=== PATIENT | male | born 1955 | race Two or more races ===

== ENCOUNTER 2024-08-13 08:57 | Emergency (ER) | payer OTHER ==
[~2024-08-13] VITALS: Ht 182.9 cm; Wt 69.7 kg
--- NOTE | 2024-08-13 09:11 | ED.PDOC ---
GI ASSESSMENT HPI Comments 69 year old male presents to the ED with chief complaint of abdominal pain. Patient reports that he has been experiencing intermittent epigastric abdominal pain with associated nausea for the past 10 days. Patient relays that he has history of GERD, enlarged prostate, and pancreatitis, currently takes Omeprazole and Flomax. Patient denies any V/D, fever, chills, dizziness, headache, or dysuria. Time Seen by MD: 09:01 Reviewed Notes: Nurses Notes, Medications, Allergies Allergies: Coded Allergies: NO KNOWN ALLERGIES (Unverified , 08/13/24) Information Source: Patient Mode of Arrival: Ambulatory Timing: Days Duration: Since onset Prehospital treatment: None Quality: Sharp Vomitus: None Stool: Normal Severity: Moderate Recent: None Recent Hx of: None Pain Location: Epigastric Modifying Factors: Nothing Associated sign and symptoms: Abdominal Pain Past Medical History PAST MEDICAL HISTORY: GERD Past Medical History (Other): Pancreatitis, Enlarged prostate Surgical History: Denies all surgeries Family History Family History: Reviewed,noncontributory to illness Social History Smoker: Non-Smoker Alcohol: Denies ETOH Use Drugs: Denies Drug Use Lives In: Home Constitutional: denies: chills, diaphoresis, fatigue, fever, malaise, sweats, weakness, others EENTM: denies: blurred vision, double vision, ear bleeding, ear discharge, ear drainage, ear pain, ear ringing, eye pain, eye redness, hearing loss, mouth pain, mouth swelling, nasal discharge, nose bleeding, nose congestion, nose p ain, photophobia, tearing, throat pain, throat swelling, voice changes, others Respiratory: denies: cough, hemoptysis, orthopnea, SOB at rest, shortness of breath, SOB with excertion, stridor, wheezing, others Cardiovascular: denies: chest pain, dizzy spells, diaphoresis, Dyspnea on exertion, edema, irregular heart beat, left arm pain, lightheadedness, palpitations, PND, syncope, others Gastrointestinal: reports: abdominal pain, nausea; denies: abdomen distended, blood streaked bowels, constipated, diarrhea, dysphagia, difficulty swallowing, hematemesis, melena, poor appetite, poor fluid intake, rectal bleeding, rectal pain, vomiting, others Genitourinary: denies: burning, dysuria, flank pain, frequency, hematuria, incontinence, penile discharge, penile sore, pain, testicle pain, testicle swelling, urgency, others Neurological: denies: dizziness, fainting, headache, left sided numbness, left sided weakness, numbness, paresthesia, pre-existing deficit, right sided numbness, right sided weakness, seizure, speech problems, tingling, tremors, weakness, others Musculoskeletal: denies: back pain, gout, joint pain, joint swelling, muscle pain, muscle stiffness, neck pain, others Integumetry: denies: bruises, change in color, change in hair/nails, dryness, laceration, lesions, lumps, rash, wounds, others Allergic/Immunocompromised: denies: Difficulty Healing, Frequent Infections, Hives, Itching, others Hematologic/Lymphatic: denies: anemia, blood clots, easy bleeding, easy bruising, swollen glands, others Endocrine: denies: excessive hunger, excessive sweating, excessive thirst, excessive urination, flushing, intolerance to cold, intolerance to heat, unexplained weight gain, unexplained weight loss, others Psychiatric: denies: anxiety, bipolar disorder, depression, hopeless, panic disorder, schizophrenia, sleepless, suicidal, others All Other Systems: Reviewed and Negative Physical Exam General Appearance: Moderate Distress, Normal HEENT: Normal ENT Inspection, PERRL/EOMI Neck: Full Range of Motion, Non-Tender, Normal, Normal Inspection Respiratory: Chest Non-Tender, Lungs Clear, No Accessory Muscle Use, No Respiratory Distress, Normal Breath Sounds Cardiovascular: No Edema, No JVD, No Murmur, No Gallop, Normal Peripheral Pulses, Regular Rate/Rhythm Breast Exam: Deferred Gastrointestinal: No Organomegaly, Non Tender, No Pulsatile Mass, Normal Bowel Sounds, Soft Genitalia: Deferred Pelvic: Deferred Rectal: Deferred Extremities: No calf tenderness, Normal capillary refill, Normal inspection, Normal range of motion, Non-tender, No pedal edema Musculoskeletal : Apperance: Normal Neurologic: Alert, log loader helper II-XII nml as Tested, No Motor Deficits, Normal Affect, Normal Mood, No Sensory Deficits Cerebellar Function: Normal Reflexes: Normal Skin: Dry, Normal Color, Warm Peripheral Pulses: 3+ Radial (R), 3+ Radial (L) Lymphatic: No Adenopathy Was a procedure done? Was a procedure done?: No GI differential Dx Differential Diagnosis: Constipation, Diverticular disease, Esophagitis, Gastritis/PUD, Gastroenteritis X-Ray, Labs, Meds, VS Vital Signs Date Time Temp Pulse Resp B/P (MAP) Pulse Ox O2 Delivery O2 Flow Rate FiO2 08/13/24 12:38 97.7 71 18 126/84 (98) 99 97.7 08/13/24 09:45 78 18 99 Room Air 08/13/24 09:36 97.8 78 18 134/95 (108) 99 97.8 08/13/24 09:13 61 08/13/24 09:01 97.9 87 18 158/94 (115) 99 Lab Test 08/13/24 09:19 Range/Units White Blood Count 4.5 4.4-10.8 10^3/uL Red Blood Count 5.23 4.5-5.90 10^6/uL Hemoglobin 15.3 13.5-17.5 g/dL Hematocrit 46.1 41.0-53.0 % Mean Corpuscular Volume 88.0 80.0-100.0 fL Mean Corpuscular Hemoglobin 29.3 28.0-32.0 pg Mean Corpuscular Hemoglobin Concent 33.3 32.0-36.0 g/dL Red Cell Distribution Width 13.2 11.8-14.3 % Platelet Count 282 140-450 10^3/uL Mean Platelet Volume 7.7 6.9-10.8 fL Neutrophils (%) (Auto) 48.8 37.0-80.0 % Lymphocytes (%) (Auto) 38.5 10.0-50.0 % Monocytes (%) (Auto) 11.1 0.0-12.0 % Eosinophils (%) (Auto) 1.4 0.0-7.0 % Basophils (%) (Auto) 0.2 0.0-2.0 % Neutrophils # (Auto) 2.2 1.6-8.6 10 ^3/uL Lymphocytes # (Auto) 1.7 0.4-5.4 10 ^3/uL Monocytes # (Auto) 0.5 0-1.3 10 ^3/uL Eosinophils # (Auto) 0.1 0-0.8 10 ^3/uL Basophils # (Auto) 0 0-0.2 10 ^3/uL Nucleated Red Blood Cells 0.1 % Sodium Level 140 136-145 mmol/L Potassium Level 3.8 3.5-5.1 mmol/L Chloride Level 105 98-107 mmol/L Carbon Dioxide Level 29 20-31 mmol/L Anion Gap 6 5-15 Blood Urea Nitrogen 11 9-23 mg/dL Creatinine 1.01 0.700-1.30 mg/dL Glomerular Filtration Rate Calc 81 >90 mL/min BUN/Creatinine Ratio 10.9 10.0-20.0 Serum Glucose 94 74-106 mg/dL Calcium Level 10.2 8.7-10.4 mg/dL Lipase 54 H 12-53 U/L Current Medications Medications (Trade) Dose Ordered Sig/Case Route Start Time Stop Time Status Last Admin Belladonna Alkaloids/ Phenobarbital ( Elixir) 10 ml ONCE ONCE PO 08/13/24 09:15 08/13/24 09:16 DC 08/13/24 09:35 Al Hydrox/Mg Hydrox/Simethicone (Maalox Plus) 30 ml ONCE ONCE PO 08/13/24 09:15 08/13/24 09:16 DC 08/13/24 09:34 Lidocaine HCl (Xylocaine 2% Viscous) 15 ml ONCE ONCE PO 08/13/24 09:15 08/13/24 09:16 DC 08/13/24 09:34 Patient alert. Complaining of epigastric discomfort. Vitals stable. Answering all questions. Was given GI cocktail. Reviewed his previous visit. Explained to the patient. EKG reviewed does not show any acute changes. [id number]. CT Abd/Pel: Findings: Evaluation of vasculature and solid organs is limited due to lack of intravenous contrast use. Lung Bases: Lung bases are clear. Visualized portions of the heart and pericardium are unremarkable. Liver: The liver is normal in size. There are scattered low attenuating lesions throughout the liver. The largest is in the right hepatic dome measuring 2.6 cm. Many of the low attenuating lesions likely reflect cysts. There is an indeterminate low attenuating lesion in the anterior right hepatic lobe which measures 2.2 cm not definitely representing a cyst. Gallbladder and Biliary Tree: The gallbladder is unremarkable. No intrahepatic or extrahepatic biliary ductal dilatation. Spleen: Unremarkable Pancreas: The pancreas is grossly unremarkable. Adrenal Glands: Unremarkable Kidneys: No evidence of nephrolithiasis or hydronephrosis. Bilateral parapelvic cysts. There is a right cortical renal cyst measuring 1.4 cm. GI tract: The stomach is grossly normal in appearance. No evidence of small bowel wall thickening or abnormal dilatation to suggest bowel obstruction. Sigmoid diverticulosis without acute diverticulitis. Normal caliber appendix. Peritoneum/mesentery/retroperitoneum. No evidence of free intraperitoneal air. No ascites. No evidence of suspicious lymphadenopathy. Abdominal Wall: Small fat containing inguinal hernias. Vasculature: The visualized abdominal aorta is normal in size and caliber. Evaluation of abdominal and pelvic vessels is limited due to lack of intravenous contrast. Urinary Bladder: Grossly unremarkable for degree of distention. Pelvic Organs: The prostate is enlarged measuring 5.0 cm in maximum transverse dimension. Musculoskeletal: No aggressive focal bony lesions, acute fractures or dislocation. Grade 1 anterolisthesis at L5-S1. IMPRESSION: 1. No acute abdominal or pelvic findings. 2. Sigmoid diverticulosis without acute diverticulitis. 3. Several low attenuating lesions scattered throughout the liver which are not further characterized on this unenhanced CT. Some of the lesions may reflect cysts. There is a least 1 indeterminate low attenuating lesion in the anterior right hepatic lobe. Right upper quadrant ultrasound may be obtained for further characterization. MRI is suggested if ultrasound is noncontributory. 4. Enlarged prostate. 5. Bilateral parapelvic and right cortical renal cyst. Images Reviewed?: Images reviewed and evaluated by me Time of 1ST Reevaluation: 10:01 Reevaluation 1ST: Improved Patient Education/Counseling: Diagnosis, Treatment Family Education/Counseling: No Family Present Additional Information I reviewed the following notes from patient's past medical encounters: None The following tests were ordered, and results were reviewed by me: CBC, Lipase, BMP, CT Abd/Pel Additional Information was gathered from interviewing the following independent historians: None I reviewed and agreed with the following test results read by other providers: CT Abd/Pel I discussed treatment and results with medical personnel. Departure 1 Departure Time of Disposition: 09:15 Impression: Primary Impression: Acute pancreatitis Qualified Codes: K85.90 - Acute pancreatitis without necrosis or infection, unspecified Additional Impression: Gastritis Qualified Codes: K29.00 - Acute gastritis without bleeding Disposition: 02 SHORT TERM HOSPITAL Admit to: Med Surg Condition: Guarded Critical Care Note Critical Care Time?: No Stability Stability form required: No Heart Score Heart Score: Heart Score Response (Comments) Value History Slightly Suspicious 0 EKG Normal 0 Age >65 2 Risk Factors 1 or 2 risk factors 1 Troponin N/A 0 Total 3 I personally scribed for MARCELO NEVAREZ MD ([email or web address]) on 08/13/24 at 09:11. Electronically submitted by Eyad Piña ([email or web address]). I personally scribed for MARCELO NEVAREZ MD ([email or web address]) on 08/13/24 at 09:12. Electronically submitted by Eyad Piña ([email or web address]). I personally scribed for MARCELO NEVAREZ MD ([email or web address]) on 08/13/24 at 11:33. Electronically submitted by Eyad Piña ([email or web address]). I personally scribed for MARCELO NEVAREZ MD ([email or web address]) on 08/13/24 at 12:57. Electronically submitted by Eyad Piña ([email or web address]). MARCELO NEVAREZ MD Aug 13, 2024 09:11
[2024-08-13] MEDS: LIDOCAINE VISCOUS 2% 15ML UD PO ONE (09:34)
[2024-08-13] MEDS: MAALOX PLUS or MAALOX 30 ML PO ONE (09:34)
[2024-08-13 09:35] LABS: Chloride 105 mmol/L (98-107); Potassium 3.8 mmol/L (3.5-5.1); Sodium 140 mmol/L (136-145)
[2024-08-13] MEDS: DONNATAL 5ml ORAL Elix (BELLADONNA ALK-PHENOBARB) PO ONE (09:35)
[2024-08-13 09:36] LABS: Anion Gap 6 (5-15); Calcium 10.2 mg/dL (8.7-10.4); Carbon Dioxide 29 mmol/L (20-31)
[2024-08-13 09:37] LABS: Basophils # (auto) 0 10 ^3/uL (0-0.2); Basophils % (auto) 0.2 % (0.0-2.0); Eosinophils # (auto) 0.1 10 ^3/uL (0-0.8); Eosinophils % (auto) 1.4 % (0.0-7.0); Hematocrit 46.1 % (41.0-53.0); Hemoglobin 15.3 g/dL (13.5-17.5); Lymphocytes # (auto) 1.7 10 ^3/uL (0.4-5.4); Lymphocytes % (auto) 38.5 % (10.0-50.0); Mean Corpuscular Hemoglobin 29.3 pg (28.0-32.0); Mean Corpuscular Hgb Conc. 33.3 g/dL (32.0-36.0); Monocytes # (auto) 0.5 10 ^3/uL (0-1.3); Monocytes % (auto) 11.1 % (0.0-12.0); Neutrophils # (auto) 2.2 10 ^3/uL (1.6-8.6); Neutrophils % (auto) 48.8 % (37.0-80.0); Nucleated Red Blood Cells % 0.1 %; Platelet Count (auto) 282 10^3/uL (140-450); Red Blood Cells 5.23 10^6/uL (4.5-5.90); Red Cell Distribution Width 13.2 % (11.8-14.3); White Blood Cell 4.5 10^3/uL (4.4-10.8)
[2024-08-13 09:41] LABS: BUN/Creatinine Ratio 10.9 (10.0-20.0); Blood Urea Nitrogen 11 mg/dL (9-23); Glucose 94 mg/dL (74-106)
[2024-08-13 10:05] LABS: Lipase 54 U/L (12-53)
--- NOTE | 2024-08-13 11:07 | ECG ---
[facility] Test Date: 2024-08-13 Test Time: 09:13:15 Pat Name: SHILO YU Department: ER Room: Gender: M Detail Supervisor: FABIAN : [id number] Requested By: MARCELO NEVAREZ Order Number: [id number] Reading MD: Fantasma King Measurements Intervals Hines Rate: 61 P: 61 RI: 149 QRS: 50 QRSD: 110 T: 64 QT: 432 QTc: 435 Interpretive Statements Sinus rhythm Electronically Signed On 08-15-2024 17:05:42 PST by Fantasma King Please click the below link to view image of tracing.
--- NOTE | 2024-08-13 11:30 | DVH ---
Exam: CT CT AB PEL WO CON-NO ORAL OR IV History: abd pain Comparison Study: None available at time of dictation. Technique: Multidetector spiral CT of the abdomen and pelvis was performed from lung bases to pubic s ymphysis. Imaging was performed without intravenous contrast. Coronal and sagittal multiplanar refor mats were obtained from the axial data set by the technologist. Radiation Dose : 1. Abdomen/Pelvis: CTDIvol 5.3 mGy, DLP 300.9 mGy*cm. Findings: Evaluation of vasculature and solid organs is limited due to lack of intravenous contrast use. Lung Bases: Lung bases are clear. Visualized portions of the heart and pericardium are unremarkable. Liver: The liver is normal in size. There are scattered low attenuating lesions throughout the liver . The largest is in the right hepatic dome measuring 2.6 cm. Many of the low attenuating lesions lik lorraine reflect cysts. There is an indeterminate low attenuating lesion in the anterior right hepatic lo be which measures 2.2 cm not definitely representing a cyst. Gallbladder and Biliary Tree: The gallbladder is unremarkable. No intrahepatic or extrahepatic bilia ry ductal dilatation. Spleen: Unremarkable Pancreas: The pancreas is grossly unremarkable. Adrenal Glands: Unremarkable Kidneys: No evidence of nephrolithiasis or hydronephrosis. Bilateral parapelvic cysts. There is a ri ght cortical renal cyst measuring 1.4 cm. GI tract: The stomach is grossly normal in appearance. No evidence of small bowel wall thickening or abnormal dilatation to suggest bowel obstruction. Sigmoid diverticulosis without acute diverticuliti s. Normal caliber appendix. Peritoneum/mesentery/retroperitoneum. No evidence of free intraperitoneal air. No ascites. No evidenc e of suspicious lymphadenopathy. Abdominal Wall: Small fat containing inguinal hernias. Vasculature: The visualized abdominal aorta is normal in size and caliber. Evaluation of abdominal a nd pelvic vessels is limited due to lack of intravenous contrast. Urinary Bladder: Grossly unremarkable for degree of distention. Pelvic Organs: The prostate is enlarged measuring 5.0 cm in maximum transverse dimension. Musculoskeletal: No aggressive focal bony lesions, acute fractures or dislocation. Grade 1 anterolist hesis at L5-S1. IMPRESSION: 1. No acute abdominal or pelvic findings. 2. Sigmoid diverticulosis without acute diverticulitis. 3. Several low attenuating lesions scattered throughout the liver which are not further characterized on this unenhanced CT. Some of the lesions may reflect cysts. There is a least 1 indeterminate low a ttenuating lesion in the anterior right hepatic lobe. Right upper quadrant ultrasound may be obtained for further characterization. MRI is suggested if ultrasound is noncontributory. 4. Enlarged prostate. 5. Bilateral parapelvic and right cortical renal cyst. 6. Enlarged prostate.
[2024-08-13 19:28] LABS: Urine Bacteria None Seen /hpf (None Seen)
[2024-08-13 19:30] VITALS: PULSE 70; RESP 16; O2SAT 98
[2024-08-13 19:41] VITALS: BP 119/81; PULSE 70; RESP 16; TEMP 98.9; O2SAT 98
[2024-08-13 19:45] LABS: Urine Blood Negative /uL (Negative); Urine Clarity Clear (Clear); Urine Color Light-Yellow (Yellow); Urine Mucus FEW (None Seen); Urine Protein, UAD Negative (Negative); Urine Specific Gravity 1.014 (1.001-1.035); Urine Squamous Epithelial Cell None Seen /hpf (<5); Urine Urobilinogen Normal (Negative); Urine WBC < 1 /HPF (0-3)
== END 2024-08-13 20:47 | disposition short-term general hospital (02) ==
LOC: ER 08:57
DX: K85.90 Acute pancreatitis without necrosis or infection, unspecified (principal); K29.70 Gastritis, unspecified, without bleeding; K21.9 Gastro-esophageal reflux disease without esophagitis; N40.0 Benign prostatic hyperplasia without lower urinary tract symptoms; K57.30 Diverticulosis of large intestine without perforation or abscess without bleeding; Z87.19 Personal history of other diseases of the digestive system
CPT/HCPCS: 36415; 74176; 80048; 81001; 83690; 85025; 93005